=== PATIENT | male | born 1995 | race Caucasian/White ===

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

== ENCOUNTER 2017-03-23 19:18 | Emergency (ER) | payer BC ==
[~2017-03-23] VITALS: Ht 172.7 cm; Wt 77.2 kg
[2017-03-23] MEDS ORDERED: IBUP-1114 PO (19:31)
[2017-03-23] MEDS ORDERED: ONDANSETRON 4 MG ORAL DISINTEGRATING TAB (S0181) PO ONE (23:15)
[2017-03-23 23:59] LABS: BASO % 0.4 % (0.0-1.0); EOS # 0.3 10^3/uL (0.0-0.50); IMMATURE GRANULOCYTE % 0.5 % (0-0); LYMPH # 2.3 10^3/uL (1.5-6.5); LYMPH % 29.2 % (24.0-44.0); MEAN CORPUSCULAR HEMOGLOBIN 29.8 pg (27.0-33.0); MEAN CORPUSCULAR HGB CONC 33.8 g/dl (32.0-36.5); MONO # 0.7 10^3/uL (0.0-0.8); MONO % 8.4 % (0.0-5.0); NEUTROPHILS # 4.6 10^3/uL (1.8-7.7); NEUTROPHILS % 57.5 % (36.0-66.0); PLATELET COUNT, AUTOMATED 221 10^3/uL (150-450); RED CELL DISTRIBUTION WIDTH 11.9 % (11.5-14.5)
[2017-03-24] MEDS ORDERED: ZOFR4TAB3 PO (00:19)
[2017-03-24 00:31] LABS: ALBUMIN 4.1 GM/DL (3.2-5.2); ALBUMIN/GLOBULIN RATIO 1.28 (1.00-1.93); ALKALINE PHOSPHATASE 79 U/L (45-117); ALT/SGPT 35 U/L (12-78); ANION GAP 2 MEQ/L (8-16); AST/SGOT 24 U/L (15-37); BILIRUBIN,TOTAL 0.6 MG/DL (0.2-1.0); BLOOD UREA NITROGEN 13 MG/DL (7-18); CALCIUM LEVEL 9.3 MG/DL (8.5-10.1); CARBON DIOXIDE LEVEL 33 MEQ/L (21-32); CHLORIDE LEVEL 103 MEQ/L (98-107); CREATININE FOR GFR 1.06 MG/DL (0.70-1.30); GLUCOSE, FASTING 81 MG/DL (70-105); POTASSIUM SERUM 4.4 MEQ/L (3.5-5.1); SODIUM LEVEL 138 MEQ/L (136-145); TOTAL PROTEIN 7.3 GM/DL (6.4-8.2)
[2017-03-24] MEDS ORDERED: PROT1TAB2 PO (01:07)
[2017-03-24 01:16] VITALS: BP 152/66
--- NOTE | 2017-03-24 07:52 | REP ---
Abdomen two views supine and upright: The bowel gas pattern is normal. No calcifications. Skeletal structures and soft tissues are otherwise unremarkable. Impression: Normal bowel gas pattern. Signed by Judson Renteria MD 03/24/2017 07:44 A
== END 2017-03-24 01:18 | disposition home or self-care (01) ==
LOC: M ED 19:18
DX: A08.4 Viral intestinal infection, unspecified (principal); K92.0 Hematemesis